=== PATIENT | female | born 1950 | race Caucasian/White ===

== ENCOUNTER 2024-10-15 13:53 | Outpatient (CLI) | payer OTHER, SELFPAY | END 2024-10-15 13:54 | disposition home or self-care (01) | LOC: OP CLINIC 13:56 | PROVIDERS: PCP Family Medicine; Visit Provider Internal Medicine Gastroenterology | DX: K52.9 Noninfective gastroenteritis and colitis, unspecified (principal); K57.30 Diverticulosis of large intestine without perforation or abscess without bleeding | CPT/HCPCS: 45331; 88305 ==